=== PATIENT | male | born 1945 | race Caucasian/White ===

== ENCOUNTER 2016-12-07 06:31 | Inpatient (IN) | payer OTHER ==
[2016-12-07] MEDS ORDERED: LACTATED RINGERS SOLUTION 1,000 ML IV SCH (08:15)
[2016-12-07 08:29] VITALS: BMI 21.5
[2016-12-07] MEDS ORDERED: PEG 3350/NA SULF BICARB CL/KCL 4000 ML SOLN.RECON PO ONE (10:00)
[2016-12-08] MEDS ORDERED: ERTAPENEM SODIUM 1 GM in SODIUM CHLORIDE 50 ML IVPB ONE (08:00)
[2016-12-08] MEDS ORDERED: MIDAZOLAM HCL 2 MG/2 ML SINGLE DOSE VIAL ONE (14:52)
[2016-12-08] MEDS ORDERED: ROCURONIUM BROMIDE 50 MG/5 ML VIAL ONE ×2 (14:56→15:39)
[2016-12-08] MEDS ORDERED: PROPOFOL 20 ML ONE (14:56)
[2016-12-08] MEDS ORDERED: ERTAPENEM SODIUM 1 GM/50 ML PRE-DOCKED IVPB ONE (15:05)
[2016-12-08] MEDS ORDERED: morphine CARPU-JECT 4 MG/1 ML DISP.SYRIN IVPB PRN ×2 (15:06→15:09)
[2016-12-08] MEDS ORDERED: oxyCODONE HCL 5 MG TABLET PO PRN (15:09)
[2016-12-08] MEDS ORDERED: ACETAMINOPHEN 325 MG TABLET (FP) PO PRN (15:09)
[2016-12-08] MEDS ORDERED: ceFAZolin SODIUM 1 GM VIAL IVPB ONE (15:24)
[2016-12-08] MEDS ORDERED: DEXAMETHASONE SOD PHOSPHATE 4 MG/1 ML VIAL ONE ×2 (15:58→17:14)
[2016-12-08] MEDS ORDERED: GlUCAGON HUMAN RECOMBINANT 1 MG/VIAL ONE (16:32)
[2016-12-08] MEDS ORDERED: NEOSTIGMINE METHYLSULFATE 0.5 MG/ML - 10 ML MDV ONE (17:13)
[2016-12-08] MEDS ORDERED: GLYCOPYRROLATE 0.2 MG/1 ML VIAL ONE (17:14)
[2016-12-08] MEDS ORDERED: HYDROmorphone HCL CARPU-JECT 2 MG/1 ML DISP.SYRIN ONE ×2 (17:41→18:21)
[2016-12-08] MEDS: HYDROmorphone HCL CARPU-JECT 1 MG/1 ML DISP.SYRIN IVPUSH PRN ×4 (17:52→18:50)
[2016-12-08] MEDS ORDERED: LACTATED RINGERS SOLUTION 1,000 ML IV SCH (17:59)
[2016-12-08] MEDS: LACTATED RINGERS SOLUTION 1,000 ML IV SCH (20:03)
[2016-12-08] MEDS: HYDROmorphone HCL CARPU-JECT 1 MG/1 ML DISP.SYRIN IVPB PRN (20:33)
[2016-12-09] MEDS: HYDROmorphone HCL CARPU-JECT 1 MG/1 ML DISP.SYRIN IVPB PRN ×6 (02:39→23:08)
[2016-12-09] MEDS: LACTATED RINGERS SOLUTION 1,000 ML IV SCH ×2 (05:33→19:32)
[2016-12-09 07:33] LABS: BASOPHIL 0.1 % (0-2.0); MCH 29.9 pg (25.7-33.7); MCHC 35.5 g/dl (32.0-35.9); MEAN CELL VOLUME 84.3 fl (80-96); MEAN PLT VOLUME 7.9 fl (7.5-11.1); NEUTROPHILS 89.3 % (42.8-82.8); PLATELET COUNT 244 K/MM3 (134-434); WHITE BLOOD COUNT 12.7 K/mm3 (4.0-10.0)
[2016-12-09 07:46] LABS: ANION GAP 8 (8-16); CALCIUM 8.2 mg/dL (8.5-10.1); CO2 28 mmol/L (21-32); CREATININE 0.5 mg/dL (0.7-1.3); GLUCOSE,RANDOM 118 mg/dL (74-106); MAGNESIUM 1.7 mg/dL (1.8-2.4); PHOSPHOROUS 4.2 mg/dL (2.5-4.9)
--- NOTE | 2016-12-09 08:40 | PN ---
Progress Note (short form) - Note Progress Note: Anesthesiology Post-op POD#1 s/p Ex-lap with low anterior resection under GA. Pt. is resting in bed. He does c/o moderate to severe pain once his pain medication wears off. Still NPO but has passed gas from above, not from below as of yet. He denies nausea. No apparent anesthesia-related issues. Will order simethicone PRN to help with pain. Besides this, he has IV dilaudid ordered as well. VSS.
[2016-12-09] MEDS: ENOXAPARIN NA (PORCINE) 40 MG/0.4 ML DISP.SYRIN SQ SCH (09:35)
[2016-12-09] MEDS: PANTOPRAZOLE SODIUM 40 MG in SODIUM CHLORIDE 100 ML IVPB SCH (09:39)
[2016-12-09] MEDS ORDERED: MAGNESIUM SULF 50% (8.12 MEQ/2 ML-1 GM VIAL) IVPB ONE (10:15)
[2016-12-09] MEDS: SIMETHICONE 40 MG/0.6 ML BOTTLE PO PRN (10:51)
--- NOTE | 2016-12-09 11:24 | OP ---
DATE OF OPERATION: 12/08/2016 PREOPERATIVE DIAGNOSIS: Acute and chronic sigmoid diverticulitis/ diverticulosis. POSTOPERATIVE DIAGNOSIS: Acute and chronic sigmoid diverticulitis/ diverticulosis. PROCEDURE: Exploratory laparotomy, low anterior resection, splenic flexure takedown, omental patch to anastomosis, anal dilatation, rigid sigmoidectomy, peritoneal lavage. OPERATING SURGEON: Marito Morales MD ULTRASONIC SEAMING MACHINE OPERATOR: Jose Ayala MD ANESTHESIA: Sweta Layton MD (general) HISTORY: This is a 71-year-old man who since August has been plagued with diverticulitis. Despite multiple attempts to manage him conservatively in anticipation of colonoscopy and a potential laparoscopic left colon resection, he continued to smolder and never improved. At this juncture, he was admitted to the hospital for exploratory laparotomy and definitive management. Indications, alternatives, and possible complications reviewed. Consent obtained. DESCRIPTION OF PROCEDURE: With the patient in supine position and the lower extremities in stirrups, the abdomen was prepped and draped in the usual sterile fashion using chlorhexidine. A midline incision was made beginning just above the umbilicus and extended toward the pubis. The subcutaneous tissues were . The midline fascia was identified and incised. The peritoneum was incised and the abdominal cavity entered. Exploration of the abdomen revealed an inflammatory mass in the left lower quadrant at the rectosigmoid junction. This was also associated with local stricture. There were also multiple diverticula noted throughout the left colon and even some noted on the right that were hard. Fecalith noted within the diverticula of the left colon. There were no collections noted or pus found during the exploration. Otherwise, the abdomen was unremarkable. The left colon was mobilized medially incising the White line of Toldt. The left ureter was identified. The medial reflection of the left colon was also incised. The colon was mobilized to the level about the proximal 1/3 of the rectum, which was healthy. The mesorectum was divided, and a TA40 stapler placed across the proximal rectum and fired. The left colon was divided at this level. Given the extent of the diverticulosis on the left side with the multiple tics extending well into the descending colon, the decision was made to proceed with formal left hemicolectomy. The peritoneal reflection was further incised, and ultimately the splenic flexure was taken down normalizing the entire distal transverse colon and splenic flexure. The mesocolon included in the OTONIEL was divided using the LigaSure system. Ultimately , the left transverse colon was transected using a FALGUNI stapler technique and the large specimen, which included the distal transverse colon, the descending colon, the sigmoid colon, and the proximal rectum were delivered. Then 1 mL of glucagon was administered intravenously by Anesthesia at my request. The cut end of the distal transverse colon was opened, and the handle of a 28 EEA stapler placed within the lumen of the distal transverse colon. The colon was closed once again with a FALGUNI stapler. Ultimately, the spike, which had been attached to the anvil, was forwarded through the FALGUNI staple line, and a pursestring suture was placed at that level fixing the anvil to the distal transverse colon. The spike was removed. Anal dilatation then ensued. Now, rectal dilators were used to dilate the rectum to the level of the transected proximal rectum, which was approximately 10-12 cm from the anal verge. Ultimately, the EEA stapler was passed transanally, and the spike was advanced through the staple line at the level of the proximal rectum. At this juncture, the distal transverse colon with the anvil in place was appropriately attached to the stapler device, which had been passed transrectally. The stapler was closed and ultimately fired and removed. Two complete donuts were noted within the stapling device. Inspection of the anastomosis revealed good vascularity both proximally and distally. There was no significant disparity in lumen size. The pelvis was filled with saline and a rigid sigmoidoscope placed in the rectum occluding the left colon just proximal to the anastomosis. Air was insufflated via the rectum, and the anastomosis was distended under water on several occasions. No air leaks were identified. Ultimately the air was allowed to escape. Sigmoidoscope was then advanced to the level of the anastomosis with the visualized from below not traversing the anastomosis itself. It appeared intact. The sigmoidoscope was removed. Peritoneal lavage ensued. A portion of omentum was mobilized into the pelvis and draped over the anastomosis as an omental patch. After adequate hemostasis was noted, the wound was closed using No. 1 PDS suture beginning on each end of the incision with the suture ultimately tied at the wound midpoint. Along the course of the closure, interrupted No. 1 Vicryl sutures were also placed. The subcutaneous tissues were irrigated. Adequate hemostasis ensured. Skin edges were approximated using metallic clips. Prior to closure of the wound, a Bora-Ramos drain had been placed in the pelvis, which was left to exit through a simple stab wound in the right lower abdominal wall where the drain was attached to the skin with 2-0 silk suture material. Needle and instrument count correct. ESTIMATED BLOOD LOSS: 200 mL. SPECIMEN: Left colon and proximal rectum. DRAINS: One J-P. The patient tolerated the procedure well, and the procedure was terminated. Charline [id number] cc: Bryan Brewer MD MTDD
[2016-12-09] MEDS: ERTAPENEM SODIUM 1 GM in SODIUM CHLORIDE 50 ML IVPB SCH (11:56)
[2016-12-09] MEDS ORDERED: ERTAPENEM SODIUM 1 GM/50 ML PRE-DOCKED IVPB ONE (15:00)
[2016-12-10] MEDS: HYDROmorphone HCL CARPU-JECT 1 MG/1 ML DISP.SYRIN IVPB PRN ×5 (03:16→23:26)
[2016-12-10 07:12] LABS: MCH 29.7 pg (25.7-33.7); MCHC 34.8 g/dl (32.0-35.9); MEAN CELL VOLUME 85.4 fl (80-96); MEAN PLT VOLUME 7.9 fl (7.5-11.1); PLATELET COUNT 257 K/MM3 (134-434); RDW 14.1 % (11.9-15.9); WHITE BLOOD COUNT 12.3 K/mm3 (4.0-10.0)
[2016-12-10 07:30] LABS: ANION GAP 9 (8-16); CALCIUM 8.6 mg/dL (8.5-10.1); CO2 30 mmol/L (21-32); CREATININE 0.5 mg/dL (0.7-1.3); GLUCOSE,RANDOM 97 mg/dL (74-106); MAGNESIUM 1.8 mg/dL (1.8-2.4)
[2016-12-10] MEDS ORDERED: PT OWN MED DRAWER 7, Y5N ONE ×2 (09:25→21:38)
[2016-12-10] MEDS: PANTOPRAZOLE SODIUM 40 MG in SODIUM CHLORIDE 100 ML IVPB SCH (09:39)
[2016-12-10] MEDS: ERTAPENEM SODIUM 1 GM in SODIUM CHLORIDE 50 ML IVPB SCH (09:39)
[2016-12-10] MEDS: ENOXAPARIN NA (PORCINE) 40 MG/0.4 ML DISP.SYRIN SQ SCH (09:40)
[2016-12-10] MEDS ORDERED: ERTAPENEM SODIUM 1 GM in SODIUM CHLORIDE 50 ML IVPB ONE (10:00)
--- NOTE | 2016-12-10 10:51 | PN ---
Progress Note (short form) - Note Progress Note: surgery pt seen and examined. feels well. ambulating. no flatus afebrile, tmax 99.9 u/o 1300 abd- soft, mild distension, expected incisional tenderness, clean, hermelinda sero- sanguinous Laboratory Tests 12/10/ 06:15 WBC 12.3 H A/P 1) Pod#2- cont npo, ivf, hermelinda, sandhu 2) left colectomy, follow path 3) prophylaxis- lovenox, protonix 4) inflammation at time of surgery with possible bacterial contamination- cont iv abx 5) pain- dilaudid
--- NOTE | 2016-12-10 13:37 | PATH ---
Surgical Pathology Report Patient Name: TABBY GELLER [facility]. Rec. #: [id number] /Age/Gender: 1945 (Age: 71) / M Account: [id number] Location: [address] [place] [address]/[facility] Taken: 12/08/2016 Received: 12/09/2016 Reported: 12/10/2016 Physicians: Marito Morales M.D. Specimen(s) Received PORTION OF LEFT RECTOSIGMOID Clinical History Diverticulitis Final Diagnosis COLON, LEFT RECTOSIGMOID, RESECTION: DIVERTICULOSIS AND DIVERTICULITIS WITH PERICOLIC ABSCESS FORMATION SUGGESTIVE OF PERFORATION. Comment: Recommend correlation with clinical findings and follow up as clinically indicated. Electronically Signed Varinder Heart M.D. Gross Description Received in formalin labeled "portion of left rectosigmoid," is a 29 cm in length portion of colon with one stapled mucosal margin and one open mucosal margin. The specimen displays abundant attached pericolonic adipose tissue. The serosa is wagner-john with a focal john-purple, dusky appearance. The mucosa is pink-wagner with normal folds. No mucosal masses are identified. Sectioning reveals a hemorrhagic diverticulum with a possible surrounding abscess cavity in the area of the dusky serosa. There are multiple additional diverticula present. No definite rupture site is identified. Cpc Coder sections are submitted in 14 cassettes as follows: 1-open mucosal margin; 2-stapled mucosal margin 7-7-vmyzolog from hemorrhagic diverticula with possible abscess cavity; [id number] food service sales representatives diverticula. 12/09/2016 [facility]12/09/2016
[2016-12-10] MEDS: SIMETHICONE 40 MG/0.6 ML BOTTLE PO PRN (21:41)
[2016-12-10] MEDS: LACTATED RINGERS SOLUTION 1,000 ML IV SCH (21:42)
[2016-12-11] MEDS: HYDROmorphone HCL CARPU-JECT 1 MG/1 ML DISP.SYRIN IVPB PRN ×3 (02:22→21:09)
[2016-12-11] MEDS: LACTATED RINGERS SOLUTION 1,000 ML IV SCH ×2 (07:59→21:55)
[2016-12-11 08:03] LABS: BASOPHIL 0.1 % (0-2.0); EOSINOPHIL 0.1 % (0-4.5); MCH 29.9 pg (25.7-33.7); MCHC 35.3 g/dl (32.0-35.9); MEAN CELL VOLUME 84.7 fl (80-96); MEAN PLT VOLUME 8.4 fl (7.5-11.1); NEUTROPHILS 83.4 % (42.8-82.8); PLATELET COUNT 296 K/MM3 (134-434); RDW 13.9 % (11.9-15.9); WHITE BLOOD COUNT 10.5 K/mm3 (4.0-10.0)
[2016-12-11 08:40] LABS: ANION GAP 8 (8-16); CO2 31 mmol/L (21-32); CREATININE 0.4 mg/dL (0.7-1.3); GLUCOSE,RANDOM 101 mg/dL (74-106); MAGNESIUM 1.7 mg/dL (1.8-2.4); PHOSPHOROUS 3.2 mg/dL (2.5-4.9)
--- NOTE | 2016-12-11 09:08 | PN ---
Progress Note (short form) - Note Progress Note: surgery pt seen and examined. walked twice yesterday. bloated. no flatus afebrile abd- soft, mild distension, incisons clean, nt Laboratory Tests 12/11/16 07:00 WBC 10.5 H A/P 1) Pod#3- cont npo, ivf, hermelinda, sandhu 2) left colectomy, follow path 3) prophylaxis- lovenox, protonix 4) inflammation at time of surgery with possible bacterial contamination- cont iv abx 5) pain- dilaudid, add caldolor
[2016-12-11] MEDS ORDERED: PT OWN MED DRAWER 7, Y5N ONE ×3 (09:42→21:02)
[2016-12-11] MEDS: ENOXAPARIN NA (PORCINE) 40 MG/0.4 ML DISP.SYRIN SQ SCH (09:46)
[2016-12-11] MEDS: IBUPROFEN 800 MG/8 ML IJ IVPB PRN ×2 (10:23→16:25)
[2016-12-11] MEDS: ERTAPENEM SODIUM 1 GM in SODIUM CHLORIDE 50 ML IVPB SCH (10:24)
[2016-12-11] MEDS: PANTOPRAZOLE SODIUM 40 MG in SODIUM CHLORIDE 100 ML IVPB SCH (10:24)
[2016-12-11] MEDS: SIMETHICONE 40 MG/0.6 ML BOTTLE PO PRN ×2 (16:01→21:04)
[2016-12-12] MEDS: HYDROmorphone HCL CARPU-JECT 1 MG/1 ML DISP.SYRIN IVPB PRN ×6 (00:01→20:36)
[2016-12-12] MEDS: SIMETHICONE 40 MG/0.6 ML BOTTLE PO PRN ×3 (03:09→16:30)
[2016-12-12 07:28] LABS: BASOPHIL 0.1 % (0-2.0); EOSINOPHIL 0.7 % (0-4.5); MCH 29.6 pg (25.7-33.7); MCHC 34.7 g/dl (32.0-35.9); MEAN CELL VOLUME 85.4 fl (80-96); MEAN PLT VOLUME 8.1 fl (7.5-11.1); NEUTROPHILS 77.6 % (42.8-82.8); PLATELET COUNT 257 K/MM3 (134-434); WHITE BLOOD COUNT 7.1 K/mm3 (4.0-10.0)
[2016-12-12 07:47] LABS: ANION GAP 8 (8-16); CALCIUM 7.9 mg/dL (8.5-10.1); CO2 30 mmol/L (21-32); CREATININE 0.6 mg/dL (0.7-1.3); GLUCOSE,RANDOM 100 mg/dL (74-106); MAGNESIUM 1.8 mg/dL (1.8-2.4); PHOSPHOROUS 3.1 mg/dL (2.5-4.9)
[2016-12-12] MEDS ORDERED: traMADol HCL 50 MG TABLET PO PRN (07:50)
--- NOTE | 2016-12-12 07:54 | PN ---
Progress Note (short form) - Note Progress Note: surgery pt seen and examined. still no flatus. nausea. taking dilaudid afebrile abd- soft, mild distension, incisons clean, nt, no change, Laboratory Tests 12/12/16 06:30 WBC 7.1 D chemistries pending A/P 1) Pod#4- cont npo, ivf, hermelinda, sandhu 2) left colectomy, follow path 3) prophylaxis- lovenox, protonix 4) inflammation at time of surgery with possible bacterial contamination- cont iv abx, wbc wnl 5) pain- dilaudid, caldalor, will add ultram 6) low magnesium- will replace
[2016-12-12] MEDS ORDERED: PT OWN MED DRAWER 7, Y5N ONE ×2 (08:52→16:26)
[2016-12-12] MEDS: LACTATED RINGERS SOLUTION 1,000 ML IV SCH (09:00)
[2016-12-12] MEDS: PANTOPRAZOLE SODIUM 40 MG in SODIUM CHLORIDE 100 ML IVPB SCH (09:00)
[2016-12-12] MEDS: ENOXAPARIN NA (PORCINE) 40 MG/0.4 ML DISP.SYRIN SQ SCH (09:01)
[2016-12-12] MEDS: ERTAPENEM SODIUM 1 GM in SODIUM CHLORIDE 50 ML IVPB SCH (09:41)
[2016-12-13] MEDS: LACTATED RINGERS SOLUTION 1,000 ML IV SCH ×3 (00:12→19:55)
[2016-12-13] MEDS: HYDROmorphone HCL CARPU-JECT 1 MG/1 ML DISP.SYRIN IVPB PRN ×2 (00:13→04:57)
[2016-12-13] MEDS: SIMETHICONE 40 MG/0.6 ML BOTTLE PO PRN ×3 (00:17→22:07)
[2016-12-13 08:34] LABS: BASOPHIL 0.2 % (0-2.0); EOSINOPHIL 4.6 % (0-4.5); MCH 29.7 pg (25.7-33.7); MCHC 34.7 g/dl (32.0-35.9); MEAN CELL VOLUME 85.7 fl (80-96); MEAN PLT VOLUME 7.6 fl (7.5-11.1); NEUTROPHILS 71.6 % (42.8-82.8); PLATELET COUNT 264 K/MM3 (134-434); RDW 13.8 % (11.9-15.9); WHITE BLOOD COUNT 5.9 K/mm3 (4.0-10.0)
[2016-12-13] MEDS: IBUPROFEN 800 MG/8 ML IJ IVPB PRN (08:47)
[2016-12-13 09:06] LABS: ANION GAP 7 (8-16); CALCIUM 8.3 mg/dL (8.5-10.1); CO2 29 mmol/L (21-32); CREATININE 0.4 mg/dL (0.7-1.3); GLUCOSE,RANDOM 77 mg/dL (74-106); MAGNESIUM 1.7 mg/dL (1.8-2.4); PHOSPHOROUS 3.2 mg/dL (2.5-4.9)
--- NOTE | 2016-12-13 10:12 | PN ---
Progress Note (short form) - Note Progress Note: surgery pt seen and examined. still no flatus. less nausea. still taking dilaudid q 3hours afebrile abd- soft, non distended, incisons clean, nt, Laboratory Tests 12/13/16 12/13/16 07:30 07:30 WBC 5.9 Magnesium 1.7 L A/P 1) Pod#5- cont npo, ivf, hermelinda, d/c sandhu 2) left colectomy, follow path 3) prophylaxis- lovenox, protonix 4) inflammation at time of surgery with possible bacterial contamination- cont iv abx, wbc wnl 5) pain- stop dilaudid, cont caldalor,cont ultram, will add oxycodone 6) low magnesium- will replace today
[2016-12-13] MEDS ORDERED: oxyCODONE HCL 5 MG TABLET PO PRN (10:13)
[2016-12-13] MEDS ORDERED: PT OWN MED DRAWER 7, Y5N ONE (10:13)
[2016-12-13] MEDS: ENOXAPARIN NA (PORCINE) 40 MG/0.4 ML DISP.SYRIN SQ SCH (10:26)
[2016-12-13] MEDS: PANTOPRAZOLE SODIUM 40 MG in SODIUM CHLORIDE 100 ML IVPB SCH (10:27)
[2016-12-13] MEDS: ERTAPENEM SODIUM 1 GM in SODIUM CHLORIDE 50 ML IVPB SCH (10:27)
[2016-12-13] MEDS ORDERED: MAGNESIUM 4GM/H20 - 100 ML IVPB ONE (11:00)
[2016-12-14] MEDS: LACTATED RINGERS SOLUTION 1,000 ML IV SCH (06:24)
[2016-12-14] MEDS: SIMETHICONE 40 MG/0.6 ML BOTTLE PO PRN ×2 (06:25→17:26)
[2016-12-14 07:10] LABS: BASOPHIL 0.2 % (0-2.0); EOSINOPHIL 3.8 % (0-4.5); MCH 29.9 pg (25.7-33.7); MCHC 35.3 g/dl (32.0-35.9); MEAN CELL VOLUME 84.8 fl (80-96); MEAN PLT VOLUME 7.9 fl (7.5-11.1); NEUTROPHILS 71.2 % (42.8-82.8); PLATELET COUNT 312 K/MM3 (134-434); WHITE BLOOD COUNT 5.3 K/mm3 (4.0-10.0)
[2016-12-14 08:38] LABS: ANION GAP 11 (8-16); CO2 27 mmol/L (21-32); CREATININE 0.4 mg/dL (0.7-1.3); GLUCOSE,RANDOM 75 mg/dL (74-106); MAGNESIUM 2.2 mg/dL (1.8-2.4); PHOSPHOROUS 3.7 mg/dL (2.5-4.9)
[2016-12-14] MEDS: IBUPROFEN 800 MG/8 ML IJ IVPB PRN (08:48)
[2016-12-14] MEDS ORDERED: PT OWN MED DRAWER 7, Y5N ONE ×2 (10:03→17:23)
[2016-12-14] MEDS: ENOXAPARIN NA (PORCINE) 40 MG/0.4 ML DISP.SYRIN SQ SCH (10:09)
[2016-12-14] MEDS: PANTOPRAZOLE SODIUM 40 MG in SODIUM CHLORIDE 100 ML IVPB SCH (10:09)
[2016-12-14] MEDS: ERTAPENEM SODIUM 1 GM in SODIUM CHLORIDE 50 ML IVPB SCH (12:09)
--- NOTE | 2016-12-14 14:35 | PN ---
Progress Note (short form) - Note Progress Note: surgery pt seen and examined. flatus and diarrhea. off dilaudid. tolerating full liquids. afebrile abd- soft, non distended, incisons clean, nt, Laboratory Tests 12/14/16 06:10 WBC 5.3 A/P 1) Pod#6-full liquids, stop ivf. If remains well can likely discharge tomorrow. needs to be on liquids till Tuesday. d/c hermelinda 2) left colectomy,- path confirms diverticulitis 3) prophylaxis- lovenox, protonix 4) inflammation at time of surgery with possible bacterial contamination- cont iv abx, wbc wnl 5) pain- caldalor,cont ultram, will add oxycodone 6) low magnesium- resolved
[2016-12-15] MEDS: ENOXAPARIN NA (PORCINE) 40 MG/0.4 ML DISP.SYRIN SQ SCH (09:57)
[2016-12-15] MEDS ORDERED: PANTOPRAZOLE 40 MG TABLET (FP) PO SCH (10:00)
--- NOTE | 2016-12-15 12:13 | PN ---
Progress Note (short form) - Note Progress Note: surgery pt seen and examined. Had one episode of vomiting yesterday but feels well since and is tolerating liquids. still with flatus and liquid stool. afebrile abd- soft, non distended, incisons clean, nt, Laboratory Tests 12/14/16 06:10 WBC 5.3 A/P 1) Pod#7-will d/c home tonight if remains well and no further vomiting on liquids till Tuesday. f/u in 1-2 weeks. no narcotics or abx. 2) left colectomy,- path confirms diverticulitis with pericolonic abscess 3) prophylaxis-oob, spirometer 4) inflammation at time of surgery with possible bacterial contamination- path confirmed abscess, fully treated, no need for further abx. 5) pain- motrin/tylenol 6) low magnesium- resolved
[2016-12-15 17:56] VITALS: BP 132/84; PULSE 76; TEMP 98.2
== END 2016-12-15 19:23 | disposition home or self-care (01) | DRG 330 ==
LOC: J6S 06:31 → EDSTATUS 12-08 11:30 → JICU 12-08 16:30 → J6S 12-08 16:47
PROVIDERS: ADMIT Surgery; ATTEND Surgery
PROC: 0DTN0ZZ Resection of Sigmoid Colon, Open Approach (ICD-10-PCS; principal; 2016-12-08 14:30)
PROC: 0DTP0ZZ Resection of Rectum, Open Approach (ICD-10-PCS; 2016-12-08 14:30)
PROC: 3E1M38Z Irrigation of Peritoneal Cavity using Irrigating Substance, Percutaneous Approach (ICD-10-PCS; 2016-12-08 14:30)
DX: K57.20 Diverticulitis of large intestine with perforation and abscess without bleeding (principal); E83.42 Hypomagnesemia
CPT/HCPCS: 36415; 80048; 83735; 84100; 85025; 85027; 86850; 86900; 86901; 88307-TC; 94760; 97116-GP; 97161-GP

== ENCOUNTER 2017-04-27 10:17 | Day surgery (SDC) | payer OTHER ==
[2017-04-27 10:51] VITALS: BMI 23.7
[2017-04-27] MEDS ORDERED: MIDAZOLAM HCL 2 MG/2 ML SINGLE DOSE VIAL ONE (11:55)
[2017-04-27] MEDS ORDERED: ceFAZolin SODIUM 1 GM VIAL ONE (12:28)
[2017-04-27] MEDS ORDERED: ONDANSETRON 4 MG/2 ML VIAL ONE (12:28)
[2017-04-27] MEDS ORDERED: BACITRACIN 15 GM TUBE TOPICAL OINTMENT ONE (12:40)
[2017-04-27 14:24] VITALS: BP 119/79; PULSE 71; TEMP 97.9
--- NOTE | 2017-04-28 06:27 | OP ---
DATE OF OPERATION: 04/27/2017 PREOPERATIVE DIAGNOSIS: Left scalp mass. POSTOPERATIVE DIAGNOSIS: Left scalp mass (final pathology pending). PROCEDURE PERFORMED: Excision of left scalp mass/intermediate wound closure (3 cm). OPERATING SURGEON: Marito Morales MD BUSINESS OFFICE TECHNICIAN: None. ANESTHESIA: Estelle Rao MD (Lidocaine 1% with epinephrine/MAC) INDICATIONS: A 71-year-old male with an enlarging left lateral scalp mass, who presents for formal excision. CONSENT: The indications, alternatives and possible complications were reviewed. Consent was obtained. DESCRIPTION OF PROCEDURE: With the patient in the right lateral decubitus position, the left scalp was prepped and draped in the usual sterile fashion using Betadine. One percent lidocaine with epinephrine was used to create a field block at the intended level of excision. A 3-cm incision was made directly over the mass and deepened into the subcutaneous space. The mass was excised sharply and ultimately delivered without difficulty. After adequate hemostasis, the wound was closed in layers. The deeper fascia was approximated with 3-0 Vicryl sutures. The subcuticular was approximated using 3 -0 Vicryl sutures. The skin was reapproximated using a continuous locking 4-0 nylon suture. Bacitracin applied and the procedure terminated. Needle and sponge counts were correct. Estimated blood loss was minimal. SPECIMEN: Left lateral scalp mass. DRAINS: None. The patient tolerated the procedure. MARITO MORALES M.D. [id number] MTDD
--- NOTE | 2017-04-29 14:23 | PATH ---
Surgical Pathology Report Patient Name: TABBY GELLER Med. Rec. #: [id number] /Age/Gender: 1945 (Age: 71) / M Account: [id number] Location: [facility] Taken: 04/27/2017 Received: 04/27/2017 Reported: 04/29/2017 Physicians: Marito Morales M.D. Specimen(s) Received LEFT SCALP MASS Clinical History Benign neoplasm of connective and other soft tissue Final Diagnosis SKIN, SCALP, EXCISION: RUPTURED TRICHILEMMAL CYST. Electronically Signed Varinder Heart M.D. Gross Description Received in formalin labeled "left scalp mass," is a 2.3 x 1.1 x 0.4 cm cyst. Yeast Culture Operator sections are submitted in one cassette. /04/28/201704/28/2017
== END 2017-04-27 14:24 | disposition home or self-care (01) ==
LOC: FASU 10:17
PROVIDERS: ATTEND Surgery
PROC: 0JB00ZZ Excision of Scalp Subcutaneous Tissue and Fascia, Open Approach (ICD-10-PCS; principal; 2017-04-27 12:30)
DX: L72.11 Pilar cyst (principal)
CPT/HCPCS: 88304-TC